=== PATIENT | female | born 1995 | race Caucasian/White ===

== ENCOUNTER 2017-07-26 04:38 | Emergency (ER) | payer OTHER ==
[~2017-07-26] VITALS: Ht 157.5 cm; Wt 50.8 kg
--- NOTE | 2017-07-26 05:40 | NUR ---
TO BED 2 A A21 YO FEMALE BIBSELF W C/O "I HAVE CHRONIC BACK PAIN BUT AT 0100 I WAS DOING A HIP POP DANCE AND TWIST BACK." DENIES ANY OTHER SYMPTOMS, SEEN WALKING WITH STEADY GAIT, VSS. NAD NOTED. NONDIAPHORETIC. COMFORT MEASURES RENDERED. AWAITING FOR ER MD BUCK.
--- NOTE | 2017-07-26 06:07 | NUR ---
DR MANDUJANO AT BEDSIDE TO [facility].
[2017-07-26] MEDS ORDERED: KETOROLAC TROMETHAMINE INJ 30 MG/ML VIAL ONE (06:17)
[2017-07-26] MEDS ORDERED: ACETAMINOPHEN 325 MG TABLET ONE (06:18)
--- NOTE | 2017-07-26 06:22 | NUR ---
MEDICATED PATIENT ORDERED BY DR MANDUJANO.
[2017-07-26] MEDS ORDERED: ACETAMINOPHEN 325 MG TABLET PO ONE (06:30)
[2017-07-26] MEDS ORDERED: KETOROLAC TROMETHAMINE INJ 60 MG/2 ML VIAL IM ONE (06:30)
--- NOTE | 2017-07-26 06:40 | NUR ---
Patient discharged to home in stable condition. Written and verbal after care instructions given. Patient verbalizes understanding of instruction. Patient is ambulatory with steady gait, no further complaints.
[2017-07-26 06:42] VITALS: BP 121/65
== END 2017-07-26 06:42 | disposition home or self-care (01) ==
LOC: ER 04:43
DX: S39.012A Strain of muscle, fascia and tendon of lower back, initial encounter (principal); S16.1XXA Strain of muscle, fascia and tendon at neck level, initial encounter; G89.29 Other chronic pain; X58.XXXA Exposure to other specified factors, initial encounter; Y93.41 Activity, dancing; Y92.89 Other specified places as the place of occurrence of the external cause; Y99.8 Other external cause status
CPT/HCPCS: 96372; 99283; A4606; J1885; Z7610